=== PATIENT | male | born 1990 | race Caucasian/White ===

== ENCOUNTER 2017-02-07 18:02 | Emergency (ER) | payer OTHER, BC ==
[2017-02-07 18:11] VITALS: RESP 18
[2017-02-07] MEDS ORDERED: DIPH,PERTUS(ACELL)TETVAC-LF 0.5 ML VIAL IM ONE (18:31)
--- NOTE | 2017-02-07 18:36 | ED ---
General Adult HPI - General Chief complaint: Extremity Injury, Upper Stated complaint: CRUSHING INJURY RT RING FINGER AND BEE STINGS Time Seen by Provider: 02/07/17 18:17 Source: patient, RN notes reviewed Mode of arrival: ambulatory Limitations: no limitations - History of Present Illness Initial comments: 26-year-old male presents to the emergency department with a chief complaint of right ring finger laceration. Patient states that he caught in the door today. Patient states worse touching tobleeding so he was concerned. He does not recall his last tetanus. Patient states he also by chance was stung by bees earlier. Patient states that this happened. He does not want anything for this he'll not be evaluated for his ring finger injury. Patient denies any other symptoms at this time.Patient denies any recent fever, chills, shortness of breath, chest pain, back pain, abdominal pain, nausea vomiting, numbness or tingling, dysuria or hematuria, constipation or diarrhea, headaches or visual changes, or any other current symptoms. - Related Data Home Medications Medication Instructions Recorded Confirmed Cholecalciferol [Vitamin D3] 1,000 unit PO DAILY 02/07/17 02/07/17 Hydrocortisone Cream 1 applic TOPICAL ONCE PRN 02/07/17 02/07/17 [Hydrocortisone 1% Cream] INSULIN LISPRO (humaLOG) [humaLOG See Protocol SQ CONTINUOUS 02/07/17 02/07/17 (formulary)] Lisinopril [Zestril] 2.5 mg PO DAILY 02/07/17 02/07/17 Previous Rx's Medication Instructions Recorded Cephalexin [Keflex] 500 mg PO Q6HR #40 cap 02/07/17 Allergies Allergy/AdvReac Type Severity Reaction Status Date / Time erythromycin base Allergy Severe Nausea & Verified 02/07/17 18:27 [Erythromycin Base] Vomiting Sulfa (Sulfonamide Allergy Severe Rash/Hives Verified 02/07/17 18:27 Antibiotics) Review of Systems ROS Statement: Those systems with pertinent positive or pertinent negative responses have been documented in the HPI. ROS Other: All systems not noted in ROS Statement are negative. Past Medical History Past Medical History: Asthma, Diabetes Mellitus Additional Past Medical History / Comment(s): LEFT ARM FRACTURE. RIGHT ANKLE FRACTURE. History of Any Multi-Drug Resistant Organisms: None Reported Past Surgical History: Adenoidectomy Past Anesthesia/Blood Transfusion Reactions: No Reported Reaction Past Psychological History: No Psychological Hx Reported Smoking Status: Never smoker Past Alcohol Use History: Rare Past Drug Use History: None Reported General Exam - General Exam Comments Initial Comments: General: The patient is awake and alert, in no distress, and does not appear acutely ill. Neck: The neck is supple, there is no tenderness. Cardiovascular: There is a regular rate and rhythm. No murmur, rub or gallop is appreciated. Respiratory: Lungs are clear to auscultation, respirations are non-labored, breath sounds are equal. No wheezes, stridor, rales, or rhonchi. Musculoskeletal: Sensation intact with 2+ pulses of the right upper extremity. Patient does appear to 1/2 cm laceration through the nail of the right ring finger. Patient will have full range of motion. Neurological: CN II-XII intact, There are no obvious motor or sensory deficits. Coordination appears grossly intact. Speech is normal. Skin: Skin is warm and dry and no rashes or lesions are noted. Psychiatric: Normal mood and affect. Limitations: no limitations Course Vital Signs 02/07/17 18:07 Temperature 97.7 F Pulse Rate 75 Respiratory 18 Rate Blood Pressure 162/97 O2 Sat by Pulse 97 Oximetry Procedures - Procedures Initial comment: The skin was anesthetized with 1% lidocaine by digital block to the right ring finger. The laceration was then cleansed with Betadine and irrigated with normal saline. The laceration does go through the nail the proximal nail is intact. The wound was inspected, and there was no evidence of injury to deep structures. No foreign body was noted in the wound. A total of 2 skin sutures were placed utilizing 2 5-0 nylon to a 1.5 from a laceration to the right finger - Orthopedic Splinting/Casting Injury #1 Side: right Upper Extremity Injury Location: finger Upper Extremity Immobilizer: aluminum form splint Medical Decision Making - Medical Decision Making 26-year-old male presents for right ring finger injury. This time patient underwent an x-ray and suture repair. There does appear to be an open fracture. He was given Ancef here. Keflex for home. We discussed follow-up with or so. He was splinted. Patient agreement with plan. We discussed care follow-up and return parameters all patient's questions. He stated that he understood and he is in agreement with plan. All questions have been answered. This time patient will be discharged home. - Radiology Data Radiology results: report reviewed, image reviewed Disposition Clinical Impression: Laceration of right ring finger, Open fracture of finger of right hand Disposition: HOME SELF-CARE Condition: Stable Instructions: Care For Your Stitches (ED), Laceration (ED) Additional Instructions: Please use medication as discussed. Please follow up with family doctor if symptoms have not improved over the next two days. Please return to the emergency room if your symptoms increase or worsen or for any other concerns. Please return to the emergency room in 8-10 days to have sutures removed. Please leave wound covered for the first 24-48 hours and then leave open to air after that time. Please use clean soap and water to clean the suture area to prevent scabbing over the top of your sutures. Please watch for any signs of infection which may include but not limited to increased pain, swelling, redness , fever or chills. Please return to the emergency room if any signs of infection do occur. Please return to the emergency room for any other concerns or complications. Prescriptions: Cephalexin [Keflex] 500 mg PO Q6HR #40 cap Referrals: Liz Balderas MD [Primary Care Provider] - 1-2 days Time of Disposition: 19:17
--- NOTE | 2017-02-07 18:48 | XR ---
EXAMINATION TYPE: XR finger RT DATE OF EXAM: 02/07/2017 CLINICAL HISTORY: pain Right fourth digit. TECHNIQUE: 3 views of the right fourth digit are submitted. COMPARISON: None FINDINGS: Comminuted subungual tuft fracture right fourth digit. Joint spaces are well-preserved. Co rrelate for soft tissue injury. IMPRESSION: Comminuted subungual tuft fracture right fourth digit.
[2017-02-07] MEDS ORDERED: ceFAZolin 1,000 MG VIAL IM STA (19:04)
[2017-02-07 19:32] VITALS: BP 147/79; PULSE 77; TEMP 97.8
== END 2017-02-07 19:30 | disposition home or self-care (01) ==
LOC: EC 18:02
DX: S62.604B Fracture of unspecified phalanx of right ring finger, initial encounter for open fracture (principal); S61.214A Laceration without foreign body of right ring finger without damage to nail, initial encounter; T63.441A Toxic effect of venom of bees, accidental (unintentional), initial encounter; E11.9 Type 2 diabetes mellitus without complications; Z87.828 Personal history of other (healed) physical injury and trauma; Z79.4 Long term (current) use of insulin; Z79.899 Other long term (current) drug therapy; Z88.1 Allergy status to other antibiotic agents; Z88.2 Allergy status to sulfonamides; W23.0XXA Caught, crushed, jammed, or pinched between moving objects, initial encounter; Y92.89 Other specified places as the place of occurrence of the external cause
CPT/HCPCS: 73140; 90715; 99283; 12001; 90471; 96372; J0690

== ENCOUNTER → 2021-01-26 | Outpatient (CLI) | payer OTHER ==
--- NOTE | 2021-01-26 22:41 | CONS ---
CONSULTATION DATE OF SERVICE: 01/26/2021 REASON FOR CONSULTATION: A 30-year-old gentleman admitted to the sleep center for possible sleep apnea-hypopnea syndrome. HISTORY OF PRESENT ILLNESS/SLEEP WAKE EVALUATION: Sleep evaluation patient usual sleep schedule from 7:30 a.m. until 6:30 pm because patient works at overnight cashier and on days off, He sleeps from 11 p.m. until 9:30 a.m. Usually no problems with falling asleep. No TV in bedroom. During the sleep, he snores and wakes up 2 times with nocturia. Followup 5 years, patient increased his weight on about 50 pounds. [place] Sleepiness Scale is 5, which is in normal range, but the patient takes one nap in the afternoon. No history of hypnagogic hallucinations, sleep paralysis or cataplexy. PAST MEDICAL HISTORY: Positive for diabetes mellitus. History of asthma. PAST SURGICAL HISTORY: Surgery for left arm fracture and for right ankle fracture. MEDICATIONS: NovoLog. Lisinopril 2.5 mg once a day, vitamin D supplement. REVIEW OF SYSTEMS: Multiple awakenings from sleep. FAMILY HISTORY: Hypertension, heart problems, cancer. SOCIAL HISTORY: Negative for smoking or using alcohol. 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 REVIEW OF SYSTEMS: Snoring, awakenings from sleep. PHYSICAL EXAM: A pleasant gentleman without distress. VITAL SIGNS: BP 150/73, HR 85, RR 18, height 6 feet 5-1/4 inches, weight 242.4 pounds, body mass index 40.3, temperature 97.5, oxygen saturation at room air 90%. Oropharynx ( ) position of soft palate ( ) normal. Mallampati II. Neck is wide, 17-1/4 inches in circumference. HEENT: PERRLA, EOMI, evaluation of oropharynx showed tongue protrudes midline. NECK: Supple, no JVD. Thyroid is not palpable. LUNGS: Clear to percussion and to auscultation. Good air exchange. No wheezing or rhonchi. HEART: S1, S2 regular. No murmurs, gallops, or rubs. ABDOMEN: Soft and nontender. Bowel sounds are present. No organomegaly appreciated. EXTREMITIES: No clubbing or cyanosis. GAMING COMMISSIONER: Awake, alert, and oriented X3. Cranial nerves 2 to 7 intact. There is no fasciculation or atrophy. noted. No focal deficits observed. IMPRESSION: 1. Snoring, awakenings from sleep with nocturia, wide neck 17-1/4 inches in circumference. Possible obstructive sleep apnea-hypopnea syndrome. 2. Obesity, body mass index 40.3. 3. Diabetes mellitus. 4. Asthma. 5. Hypertension in the office. 6. Status post left arm fracture. 7. Status post right ankle fracture. 8. Patient is a commercial underwriter. PLAN: 1. Patient will continue to use PAP equipment every night for the whole night. 2. Sleep hygiene with regular time in bed for at least 7-1/2 to 8 hours. 3. Precautions related to driving. No driving if feeling sleepiness. 4. I will maintain all necessary prescription for PAP supplies including mask, tube, filters. 5. Watching weight. 6. Follow-up visit in 6 months or earlier if patient has any problems. Thank you very much for referring this patient for consultation. Sincerely, Jordan Jackson MD, PhD, FAASM Diplomat of [employer] [employer] Sleep Medicine Board of [place] [employer] Hearing Aid Technician of [facility] [place] MMODL / DANAN: [id number] /
== END ==
LOC: SLEEP 14:58
PROVIDERS: ATTEND Internal Medicine
DX: R06.83 Snoring (principal); R35.1 Nocturia; E11.9 Type 2 diabetes mellitus without complications; E66.9 Obesity, unspecified; I10 Essential (primary) hypertension; J45.909 Unspecified asthma, uncomplicated; Z68.41 Body mass index [BMI] 40.0-44.9, adult; Z87.81 Personal history of (healed) traumatic fracture; Z79.4 Long term (current) use of insulin; Z79.899 Other long term (current) drug therapy; Z88.1 Allergy status to other antibiotic agents; Z88.2 Allergy status to sulfonamides
CPT/HCPCS: 99211